=== PATIENT | male | born 1955 | race Caucasian/White ===

== ENCOUNTER 2022-06-12 17:41 | Inpatient (IN) | payer OTHER, SELFPAY ==
--- NOTE | ~2022-06-12 | XR_ITS ---
EXAMINATION: XR chest 2V DATE: 06/12/2022 18:08 INDICATION: Dyspnea TECHNIQUE: PA and lateral views of the chest were obtained. COMPARISON: None FINDINGS: Patchy left lower lobe opacities concerning for pneumonia. No pleural effusion or pneumothorax. The c ardiomediastinal silhouette is normal. Mild thoracic spondylosis. IMPRESSION: 1. Left lower lobar opacities concerning for pneumonia. Reviewed, dictated and finalized at location A.
[2022-06-12 17:43] VITALS: BP 153/89; PULSE 88; RESP 18; TEMP 37.6; O2SAT 99
--- NOTE | 2022-06-12 17:46 | ECG_ITS ---
Measurements Intervals [place] Rate: 83 P: 70 [place]: 153 QRS: 21 QRSD: 96 T: 50 QT: 333 QTc: 393 Interpretive Statements SINUS RHYTHM BASELINE WANDER- II, III, AVF NORMAL ECG NO PREVIOUS ECG AVAILABLE FOR COMPARISON Electronically Signed On 06-12-2022 18:50:47 CDT by Dionte Dangelo D.O.
[2022-06-12 18:05] LABS: Basophils Absolute Auto 0.1 K/mm3 (0.0-0.1); Basophils Percent Auto 0.5 % (0.2-1.2); Eosinophils Absolute Auto 0.5 K/mm3 (0-0.3); Eosinophils Percent Auto 2.8 % (0-4.4); Hematocrit 38.5 % (42.0-52.0); Hemoglobin 12.8 g/dL (14.0-18.0); Immature Granulocyte Absolute 0.09 K/mm3 (0.00-0.031); Immature Granulocyte Percent A 0.5 % (0-0.5); Lymphocytes Absolute Auto 1.44 K/mm3 (0.9-3.2); Lymphocytes Percent Auto 8.2 % (18.3-44.2); Mean Corpuscular HGB Conc 33.2 g/dl (32-36); Mean Corpuscular Hemoglobin 30.5 pg (26-34); Mean Corpuscular Volume 91.7 fl (80-100); Mean Platelet Volume 9.4 fl (7.4-10.4); Monocytes Absolute Auto 1.3 K/mm3 (0.1-0.6); Monocytes Percent Auto 7.2 % (2.6-8.5); Neutrophils Absolute Auto 14.2 K/mm3 (1.3-6.7); Neutrophils Percent Auto 80.8 % (45.5-73.1); Platelet Count Result 457 k/mm3 (150-375); Red Cell Distribution Width 13.6 % (11.5-14.5); White Blood Count 17.5 K/mm3 (4.5-10.0)
[2022-06-12 18:17] LABS: Alanine Aminotransferase 25 U/L (6-50); Albumin Level 3.7 g/dL (3.5-5.1); Alkaline Phosphatase 70 U/L (38-126); Anion Gap 6 mmol/L (8-16); Aspartate Amino Transferase 36 U/L (17-59); Bilirubin,Total 0.4 mg/dL (0.2-1.3); Blood Urea Nitrogen 12 mg/dL (9-20); Calcium 8.5 mg/dL (8.4-10.2); Carbon Dioxide 28 mmol/L (22-30); Chloride 103 mmol/L (98-107); Estimated CRCL calculation 77 ml/min; Estimated Glomerular Filt Rate > 60; Glucose 117 mg/dL (65-110); Sodium 137 mmol/L (137-145)
[2022-06-12 20:26] VITALS: BP 156/75; PULSE 76; RESP 18; O2SAT 99
--- NOTE | 2022-06-12 20:33 | ED.GENADULT ---
HPI - General Adult General Chief complaint: Upper Respiratory Infection Stated complaint: DYSPNEA Time Seen by Provider: 06/12/22 20:24 History of Present Illness HPI narrative: This is a 66-year-old male no past medical history presenting to ED with 1 day of dyspnea. Patient went to work feeling well but half-way through the day started to have shortness of breath. He has also noticed that he has a productive cough. Patient has noticed that he has had some discomfort on his right shoulder and some chest pain when he coughs. Patient denies nausea vomiting or diarrhea. Denies abdominal pain. He denies lower extremity edema, history of blood clots or history of heart failure. Related Data Allergies Allergy/AdvReac Type Severity Reaction Status Date / Time No Known Allergies Allergy Verified 06/12/22 17:42 Review of Systems Review of Systems: CONSTITUTIONAL: Denies night sweats. EYES: No eye pain ENT: Denies rhinorrhea CARDIOVASCULAR: Denies palpitations RESPIRATORY: Denies hemoptysis GASTROINTESTINAL: Denies hematemesis GENITOURINARY: Denies hematuria. SKIN: Denies rash MUSCULOSKELETAL: Denies myalgia. NEUROLOGIC: Denies weakness. PSYCHIATRIC: Denies delusions [facility] Social History Social History (Updated 06/12/22 @ 20:37 by Philip Rosales MD) Social History: Denies use of alcohol cigarettes and drugs Exam Narrative: APPEARANCE: patient appears uncomfortable Head atraumatic. EYES: PERRLA/EOMI, NOSE: Normal no drainage NECK: Supple, Trachea midline RESPIRATORY: rhonchi in the left lower lobe and right upper lobe, patient is tachypneic, increased work of breathing CARDIOVASCULAR: S1S2 appreciated no peripheral edema ABDOMINAL: Soft, nontender, nondistended, MUSCULOSKELETAl: No obvious deformities NEURO: Alert. Moving 4/4 extremities SKIN:: Warm, dry. Normal color PSYCHIATRIC: Normal affect Course Vital Signs Vital signs: Vital Signs Temperature 99.6 F 06/12/22 17:43 Pulse Rate 88 06/12/22 17:43 Respiratory Rate 18 06/12/22 17:43 Blood Pressure 153/89 H 06/12/22 17:43 Pulse Oximetry 99 06/12/22 17:43 Temperature 99.6 F 06/12/22 17:43 Pulse Rate 76 06/12/22 20:26 Respiratory Rate 18 06/12/22 20:26 Blood Pressure 156/75 H 06/12/22 20:26 Pulse Oximetry 99 06/12/22 20:26 Procedures Pulse Oximetry Interpretation Digit-Finger: Initial pulse oximetry readin Actions Taken: none Medical Decision Making [facility] Narrative Medical decision making narrative: this is a 66-year-old male presenting ED with 1 day of dyspnea. Differential includes pneumonia, URI, Bronchitis, ptx among others. basic lab work, EKG and chest x-ray have been ordered. Basic lab work was significant for a white blood cell count of 17.5. BMP was within normal limits. Chest x-ray showed a left lower lobe consolidation. This is likely pneumonia given the patient's clinical picture. patient has been started on ceftriaxone azithromycin. EKG interpretation: Rhythm [sinus], Rate 83, [place] -[normal], [place] -[normal], QRS [narrow], QTC [normal], T waves -[negative for concerning inversions], ST Segments - [Negative for concerning elevations] Final interpretations: [Normal Sinus Rhythm] Upon re-evaluation patient is still tachypneic and has increased work of breathing. I believe he would benefit from inpatient admission for IV abx. Patient will be admitted to the hospital Vital Signs Vital Signs: Vital Signs Temperature 99.6 F 06/12/22 17:43 Pulse Rate 88 06/12/22 17:43 Respiratory Rate 18 06/12/22 17:43 Blood Pressure 153/89 H 06/12/22 17:43 Pulse Oximetry 99 06/12/22 17:43 Temperature 99.6 F 06/12/22 17:43 Pulse Rate 76 06/12/22 20:26 Respiratory Rate 18 06/12/22 20:26 Blood Pressure 156/75 H 06/12/22 20:26 Pulse Oximetry 99 06/12/22 20:26 Lab Data Result diagrams: 06/12/22 17:53 06/12/22 17:53
[2022-06-12] MEDS: ACETAMINOPHEN 500 MG TABLET 1000 MG PO (21:07)
--- NOTE | 2022-06-12 21:29 | PM.IMHP ---
H&P: HPI History of Present Illness Date/Time: 06/12/22 21:29 Chief Complaint: SOB Narrative: This is a 66-year-old male with past medical history significant for postnasal drip. Patient presents to the emergency room due to shortness of breath copious amount of secretions. Patient denies any fevers, chills, has had night sweats, fatigue, cough Which is productive in the mornings brings up 2 balls of phlegm, no change in quality, for the reminder of the days is a tight cough chest congestion, for the last 3 days or so, patient states that his appetite is good, denies any abdominal pain, nausea, vomiting, diarrhea, leg swelling. preliminary [place] [id number],patient tested negative for COVID, chest x-ray was reported as: IMPRESSION: 1. Left lower lobar opacities concerning for pneumonia patient is being admitted for further evaluation management and treatment. Review of Systems Review of Systems: cough, chest congestion, shortness of breath, fatigue, night sweats. Constitutional: Constitutional: Denies chills, Reports fatigue, Denies fever(s), Reports lethargy, Reports malaise, Reports night sweats and Reports weakness Eyes: Eyes: Denies change in vision ENT: Denies dysphagia, Denies vertigo, Denies dizziness and Denies odynophagia Cardiovascular: Cardiovascular: Denies chest pain, Denies syncope, Denies irregular heart rhythm, Denies lightheadedness, Denies palpitations and Denies dyspnea on exertion Respiratory: Respiratory: Reports chest congestion, Reports cough, Reports excessive phlegm production, Denies pain on inspiration and Reports dyspnea Gastrointestinal: Gastrointestinal: Denies abdominal pain, Denies dyspepsia, Denies heartburn, Denies diarrhea, Denies nausea and Denies vomiting Genitourinary: Genitourinary: Denies dysuria Musculoskeletal: Musculoskeletal: Denies myalgias, Denies joint swelling, Denies muscle weakness and Denies tingling Integumentary/Breasts: Skin/Breast: Denies rash Neurologic: Denies vertigo, Denies dizziness, Denies focal weakness and Denies Sensory deficit (Neuro) Psychiatric: Psychiatric: Reports no additional psychiatric complaints and Reports as per HPI Endocrine: Endocrine: Denies cold intolerance, Denies fatigue, Denies flushing, Denies heat intolerance, Denies polyphagia, Denies polydipsia and Denies palpitations Hematologic/Lymphatic: Hematologic/Lymphatic: Reports no additional hematologic/lymphatic complaints and Reports as per HPI Allergic/Immunologic: Allergic/Immunologic: Reports no additional allergic/immunologic complaints and Reports as per HPI [facility] Family History Family History (Updated 06/12/22 @ 23:34 by Jaz Barrios RN) Other Unknown family medical history Social History Social History (Updated 06/12/22 @ 20:37 by Philip Rosales MD) Social History: Denies use of alcohol cigarettes and drugs Smoking status: Never smoker Alcohol intake: never Substance use: never Spiritual care concerns: No Meds Home Medications and Allergies Home Medications Medication Instructions Recorded Confirmed Type levocetirizine 5 mg tablet (Xyzal) 5 mg PO DAILY 06/12/22 06/12/22 History Allergies Allergy/AdvReac Type Severity Reaction Status Date / Time No Known Allergies Allergy Verified 06/12/22 17:42 Vital Signs Vital Signs - 24 hr 06/12/22 17:43 06/12/22 20:26 Temperature 99.6 F Pulse Rate 88 76 Respiratory Rate 18 18 Blood Pressure 153/89 H 156/75 H Pulse Oximetry 99 99 Exam Narrative: Patient is laying in bed Const: General: comfortable, no acute distress, well developed, alert, awake and ill appearing acutely Nutritional Appearance: thin Orientation/consciousness: patient oriented x3 HENMT: Head: normal to inspection, normocephalic and atraumatic Ears: hearing grossly normal bilaterally Face and sinus: normal facial exam Eyes: General: appearance normal, both eyes
[2022-06-12 22:20] VITALS: BP 135/64; PULSE 67; RESP 16; TEMP 37.1; O2SAT 99
--- NOTE | 2022-06-12 22:21 | ADMGEN ---
This patient, Chris Hall, was admitted to Medical Room 248-. Patient/family oriented to hospital policies and general routines including ID bracelet, bed and alarms, visiting hours, pain management, procedures, bathroom and other care routines, personal items, smoking policy, room service/diet, and visiting hours. Information on how to activate the Rapid Response Team has been discussed. Patient/Family are encouraged to report perceived risks to care and to ask questions if they do not understand what they are told or what they should do.
[2022-06-12 22:27] LABS: SARS-CoV-2 RNA PCR Negative
[2022-06-12 22:41] VITALS: BMI 26.4
[2022-06-12 23:12] VITALS: PULSE 75
[2022-06-13 00:01] VITALS: PULSE 60
[2022-06-13 04:00] VITALS: PULSE 60
[2022-06-13] MEDS: ACETAMINOPHEN 500 MG TABLET 1000 MG PO (04:53)
[2022-06-13 05:24] VITALS: BP 122/60; PULSE 63; RESP 18; TEMP 36.5; O2SAT 97
--- NOTE | 2022-06-13 07:18 | PM.IMPN ---
Progress Note: A&P Assessment and Plan (1) Acute dyspnea: Code(s): R06.00 - Dyspnea, unspecified Status: Acute Assessment and Plan: Likely due to pneumonia. Improved today. Plan Improved overnight s/p treatment with ceftriaxone and azithromycin for community acquired pneumonia. -Guaifenesin due to thick secretions -Continue ceftriaxone and azithromycin today. Will plan to give last azithromycin dose tomorrow morning. -Transition to Cefuroxime 500 mg BID x 5 more days tomorrow -Discharge patient tomorrow Subjective Date/time seen: 06/13/22 07:18 Patient denies shortness of breath or difficulty breathing. He says he feels better. is at bedside and says patient has no health problems. Says he has never have oxygen. Review of Systems Respiratory: Respiratory: Denies dyspnea Exam Narrative: GENERAL: NAD, cooperative HEENT: Normocephalic, atraumatic, anicteric, nares clear, oropharynx moist and clear, dentition normal NECK: Supple CV: Normal S1, S2, RRR, No MRG RESP: CTAB, Normal work of breathing. EXTREMITIES: Warm and well perfused, no clubbing, cyanosis, or edema. +2 Distal pulses bilaterally. SKIN: warm, dry and intact. NEURO: CN 2-12 grossly intact. Objective Data Vital Signs Vital Signs: Vital Signs - 24 hr 06/12/22 17:43 06/12/22 20:26 06/12/22 22:20 Temperature 37.6 C 37.1 C Pulse Rate 88 76 67 Respiratory Rate 18 18 16 Blood Pressure 153/89 H 156/75 H 135/64 Pulse Oximetry 99 99 99 Oxygen Delivery 06/12/22 23:00 06/12/22 23:12 06/13/22 00:01 Temperature Pulse Rate 75 60 Respiratory Rate Blood Pressure Pulse Oximetry Oxygen Delivery Room Air 06/13/22 05:24 06/13/22 04:00 Temperature 36.5 C Pulse Rate 63 60 Respiratory Rate 18 Blood Pressure 122/60 Pulse Oximetry 97 Oxygen Delivery Intake/Output Intake/Output: Intake & Output 06/10/22 06/11/22 06/12/22 06/13/22 23:59 23:59 23:59 23:59 Intake Total 50 550 Balance 50 550 Meds/Results Medications: Active Medications Generic Name Dose Route Start Last Admin Trade Name Freq PRN Reason Stop Dose Admin Azithromycin 500 mg in 250 mls @ 250 mls/hr 06/13/22 21:00 Zithromax IVPB Q24H DANIELLA Radiology Results: ITS Impressions Chest X-Ray 06/12/22 19:03 IMPRESSION: 1. Left lower lobar opacities concerning for pneumonia. Labs Labs: Laboratory Results - last 24 hr 06/12/22 06/12/22 06/12/22 17:53 17:53 21:34 WBC 17.5 H RBC 4.20 L Hgb 12.8 L Hct 38.5 L MCV 91.7 MCH 30.5 MCHC 33.2 RDW 13.6 Plt Count 457 H MPV 9.4 Immature Gran % (Auto) 0.5 Neut % (Auto) 80.8 H Lymph % (Auto) 8.2 L [place] % (Auto) 7.2 Eos % (Auto) 2.8 Baso % (Auto) 0.5 Lymph # (Auto) 1.44 [place] # (Auto) 1.3 H Eos # (Auto) 0.5 H Baso # (Auto) 0.1 Abs Immat Gran (auto) 0.09 H Absolute Neuts (auto) 14.2 H Absolute Nucleated RBC 0.0 Nucleated RBC % 0.0 Sodium 137 Potassium 4.0 Chloride 103 Carbon Dioxide 28 Anion Gap 6 L BUN 12 Creatinine 0.80 Estim Creat Clear Calc 77 Estimated GFR > 60 Glucose 117 H Calcium 8.5 Total Bilirubin 0.4 AST 36 ALT 25 Alkaline Phosphatase 70 Total Protein 8.0 Albumin 3.7 SARS-CoV-2 RNA (RT-PCR) Negative Quality VTE Prophylaxis VTE prophylaxis: pharmacologic ordered
[2022-06-13 07:33] LABS: Basophils Absolute Auto 0.1 K/mm3 (0.0-0.1); Basophils Percent Auto 0.3 % (0.2-1.2); Eosinophils Absolute Auto 0.3 K/mm3 (0-0.3); Eosinophils Percent Auto 1.8 % (0-4.4); Hematocrit 37.7 % (42.0-52.0); Hemoglobin 12.4 g/dL (14.0-18.0); Immature Granulocyte Absolute 0.11 K/mm3 (0.00-0.031); Immature Granulocyte Percent A 0.8 % (0-0.5); Lymphocytes Absolute Auto 1.08 K/mm3 (0.9-3.2); Lymphocytes Percent Auto 7.5 % (18.3-44.2); Mean Corpuscular HGB Conc 32.9 g/dl (32-36); Mean Corpuscular Hemoglobin 29.7 pg (26-34); Mean Corpuscular Volume 90.4 fl (80-100); Mean Platelet Volume 9.4 fl (7.4-10.4); Neutrophils Percent Auto 82.6 % (45.5-73.1); Platelet Count Result 404 k/mm3 (150-375); Red Blood Count 4.17 M/mm3 (4.6-6.20); Red Cell Distribution Width 13.6 % (11.5-14.5); White Blood Count 14.5 K/mm3 (4.5-10.0)
[2022-06-13 07:44] LABS: Anion Gap 8 mmol/L (8-16); Blood Urea Nitrogen 12 mg/dL (9-20); Calcium 8.2 mg/dL (8.4-10.2); Carbon Dioxide 26 mmol/L (22-30); Chloride 104 mmol/L (98-107); Estimated CRCL calculation 87 ml/min; Estimated Glomerular Filt Rate > 60; Glucose 97 mg/dL (65-110); Potassium 3.8 mmol/L (3.4-5.0); Sodium 138 mmol/L (137-145)
[2022-06-13] MEDS: ACETAMINOPHEN 325 MG TABLET 650 MG PO (10:41)
[2022-06-13] MEDS: ENOXAPARIN 40 MG/0.4 ML SYRINGE SUB-Q (10:42)
[2022-06-13] MEDS: LORATADINE 10 MG TABLET PO (10:42)
[2022-06-13 13:31] VITALS: BP 144/71; PULSE 74; RESP 20; TEMP 36.5; O2SAT 99
[2022-06-13] MEDS: guaiFENesin 12 HR 600 MG TABCR PO (18:54)
[2022-06-13 19:43] VITALS: BP 141/65; PULSE 91; RESP 18; TEMP 37.2; O2SAT 96
[2022-06-14 03:44] VITALS: BP 126/65; PULSE 64; RESP 18; TEMP 36.6; O2SAT 97
[2022-06-14 04:50] LABS: Basophils Absolute Auto 0.1 K/mm3 (0.0-0.1); Basophils Percent Auto 0.5 % (0.2-1.2); Eosinophils Absolute Auto 0.4 K/mm3 (0-0.3); Eosinophils Percent Auto 2.7 % (0-4.4); Hematocrit 36.4 % (42.0-52.0); Hemoglobin 11.9 g/dL (14.0-18.0); Immature Granulocyte Absolute 0.09 K/mm3 (0.00-0.031); Immature Granulocyte Percent A 0.6 % (0-0.5); Lymphocytes Absolute Auto 1.69 K/mm3 (0.9-3.2); Mean Corpuscular HGB Conc 32.7 g/dl (32-36); Mean Corpuscular Volume 91.7 fl (80-100); Mean Platelet Volume 9.3 fl (7.4-10.4); Monocytes Absolute Auto 1.2 K/mm3 (0.1-0.6); Neutrophils Absolute Auto 11.8 K/mm3 (1.3-6.7); Neutrophils Percent Auto 77.2 % (45.5-73.1); Platelet Count Result 435 k/mm3 (150-375); Red Blood Count 3.97 M/mm3 (4.6-6.20); Red Cell Distribution Width 13.6 % (11.5-14.5); White Blood Count 15.3 K/mm3 (4.5-10.0)
[2022-06-14 05:07] LABS: Anion Gap 6 mmol/L (8-16); Blood Urea Nitrogen 10 mg/dL (9-20); Calcium 8.2 mg/dL (8.4-10.2); Carbon Dioxide 27 mmol/L (22-30); Chloride 106 mmol/L (98-107); Estimated CRCL calculation 87 ml/min; Estimated Glomerular Filt Rate > 60; Glucose 102 mg/dL (65-110); Potassium 3.8 mmol/L (3.4-5.0); Sodium 139 mmol/L (137-145)
[2022-06-14] MEDS: guaiFENesin 12 HR 600 MG TABCR PO (08:23)
[2022-06-14] MEDS: LORATADINE 10 MG TABLET PO (08:23)
[2022-06-14] MEDS: ENOXAPARIN 40 MG/0.4 ML SYRINGE SUB-Q (08:23)
[2022-06-14] MEDS: CEFUROXIME AXETIL 250 MG TABLET 500 MG PO (08:23)
--- NOTE | 2022-06-14 13:08 | PM.DS ---
DS: Admitting Diagnosis Discharge Date June 14, 2022 Admitting Diagnosis Shortness of breath DS: Discharge Diagnosis Discharge Diagnosis (1) Acute dyspnea: Code(s): R06.00 - Dyspnea, unspecified Status: Acute Assessment and Plan: Likely due to pneumonia. Improved today. Plan Improved overnight s/p treatment with ceftriaxone and azithromycin for community acquired pneumonia. -Guaifenesin due to thick secretions -Continue ceftriaxone and azithromycin today. Will plan to give last azithromycin dose tomorrow morning. -Transition to Cefuroxime 500 mg BID x 5 more days tomorrow -Discharge patient tomorrow DS: Summary Hospital Course Hospital Course: 66-year-old male with past medical history significant for postnasal drip.? Patient presents to the emergency room due to shortness of breath copious amount of secretions.? Patient denies any fevers, chills, has had night sweats, fatigue, cough? Which is productive in the mornings brings? up 2 balls of phlegm, no change in quality, for the reminder of the days is a tight cough chest congestion, for the last 3 days or so,? patient states that his appetite is good, denies any abdominal pain, nausea, vomiting, diarrhea, leg swelling.? preliminary [place] [id number],patient tested negative for COVID. Patient improved on ceftriaxone and azithromycin and was given guaifenesin for secretions. Patient was then discharged in good condition with close outpatient follow-up to complete a one-week course of Levaquin. Time Spent with Patient Time attestation: Total time spent providing and/or coordinating discharge services: DS: Data Data Completed and Pending Labs on day of discharge: Labs from last 24 hours 06/14/22 06/14/22 04:32 04:32 WBC 15.3 H RBC 3.97 L Hgb 11.9 L Hct 36.4 L MCV 91.7 MCH 30.0 MCHC 32.7 RDW 13.6 Plt Count 435 H MPV 9.3 Immature Gran % (Auto) 0.6 H Neut % (Auto) 77.2 H Lymph % (Auto) 11.0 L [place] % (Auto) 8.0 Eos % (Auto) 2.7 Baso % (Auto) 0.5 Lymph # (Auto) 1.69 [place] # (Auto) 1.2 H Eos # (Auto) 0.4 H Baso # (Auto) 0.1 Abs Immat Gran (auto) 0.09 H Absolute Neuts (auto) 11.8 H Absolute Nucleated RBC 0.0 Nucleated RBC % 0.0 Sodium 139 Potassium 3.8 Chloride 106 Carbon Dioxide 27 Anion Gap 6 L BUN 10 Creatinine 0.70 Estim Creat Clear Calc 87 Estimated GFR > 60 Glucose 102 Calcium 8.2 L Discharge Plan Discharge Attending physician on discharge: Inna Flores Consulting providers: Kalli Brownlee ; Tj Kapadia ; Dionte Dangelo Discharging Clinician: Inna Flores Patient Disposition: Home, Self-Care Activity: as tolerated Diet: as tolerated Patient Instructions: Antibiotic Form Stand Alone Forms: General Discharge Information Follow-up/Referrals: Librado,Joe Nguyen MD [Primary Care Provider] - Discharge Medications: New guaifenesin [Mucus Relief ER] 600 mg Tablet Extended Release 12hr 600 mg PO Q12HR 7 Days Qty: 14 0RF levofloxacin 750 mg tablet 750 mg PO DAILY 5 Days Qty: 5 0RF Continued levocetirizine [Xyzal] 5 mg Tablet 5 mg PO DAILY Date of admission: 06/12/22 20:43 Primary Care Provider: LibradoJoe Admitting Provider: Rolando yHde V. Attending physician on admission: Inna Flores Condition: Serious
[2022-06-17 14:18] LABS: Legionella pneumophila Ag Ur Not Detected (Not Detected)
== END 2022-06-14 14:10 | disposition home or self-care (01) | DRG 195 ==
LOC: ANHED 21:38 → ANH2MED 22:27
PROVIDERS: Emergency Medicine; Family Medicine; Admitting Provider Internal Medicine; Emergency Provider Emergency Medicine; PCP Internal Medicine; Visit Provider Student in an Organized Health Care Education/Training Program
DX: J18.9 Pneumonia, unspecified organism (principal); Z20.822 Contact with and (suspected) exposure to COVID-19
CPT/HCPCS: 36415; 71046; 80048; 80053; 85025; 87449; 93005; 96365; 96372; 96374; 96375; 99285; A9270; C9803; G0378; J0456; J0696; J1650; U0003; U0005